=== PATIENT | female | born 1990 ===

== ENCOUNTER 2018-02-10 12:16 | Emergency (ER) | payer MEDICAID ==
[2018-02-10 12:47] VITALS: O2SAT 99
--- NOTE | 2018-02-10 13:15 | C.PDOC ---
History Of Present Illness 27 y/o F c PMHx DM p/w abdominal pain in x 14 weeks. Patient estimates she is 14 weeks by dates. She reports lower abdominal cramping, intermittently for the last 14 weeks. Pain is nonradiating, moderate to severe in intensity, gradually worsening. She reports nausea and vomiting as well. Denies fever, chills, chest pain, dyspnea, dysuria, diarrhea. She has yet to see OBGYN. Time Seen by Provider: 02/10/18 13:10 Chief Complaint (Nursing): Abdominal Pain History Per: Patient History/Exam Limitations: no limitations Onset/Duration Of Symptoms: Intermittent Episodes Current Symptoms Are (Timing): Still Present Quality Of Discomfort: Cramping Past Medical History Reviewed: Historical Data, Nursing Documentation, Vital Signs Vital Signs: Last Vital Signs Temp 98.5 F 02/10/18 12:39 Pulse 93 H 02/10/18 12:39 Resp 20 02/10/18 12:39 BP 115/81 02/10/18 12:39 Pulse Ox 99 02/10/18 15:09 - Medical History PMH: Fibromyalgia Surgical History: Tonsillectomy Family History: States: No Known Family Hx - Social History Hx Alcohol Use: No Hx Substance Use: Yes - Immunization History Hx Tetanus Toxoid Vaccination: No Hx Influenza Vaccination: No Hx Pneumococcal Vaccination: No Review Of Systems Except As Marked, All Systems Reviewed And Found Negative. Constitutional: Negative for: Fever, Chills Cardiovascular: Negative for: Chest Pain Respiratory: Negative for: Shortness of Breath Gastrointestinal: Positive for: Nausea, Vomiting, Abdominal Pain. Negative for : Diarrhea Genitourinary: Negative for: Dysuria Physical Exam - Physical Exam Additional Physical Exam Comments: Constitutional: No acute distress. Head: Normocephalic. Atraumatic. Eyes: PERRL. ENT: Moist mucous membranes. Neck: Supple. Cardiovascular: Regular rate. Radial pulse 2+ bilaterally. Chest: No tenderness. Respiratory: Clear to auscultation bilaterally. GI: Soft. Nontender. Nondistended. Back: No CVA tenderness. Musculoskeletal: No tenderness or swelling of extremities. Skin: No rash. Neurologic: Alert, no focal deficit. ED Course And Treatment - Laboratory Results Result Diagrams: 02/10/18 14:06 02/10/18 14:06 O2 Sat by Pulse Oximetry: 99 - CT Scan/US OB US Other Rad Studies (CT/US): Read By Radiologist, Radiology Report Reviewed CT/US Interpretation: Accession No. : [id number]. Patient Name / ID : LAURY NAVA / [id number]. Exam Date : 02/10/2018 14:15:15 ( Approved ). Study Comment : Sex / Age : F / 27Y. Creator : Kei Peters MD. Dictator : Kei Peters MD. Psych Specialist : Pharmacy Intake Technician : Kei Peters MD. Approver2 : Report Date : 02/10/2018 14:49:17. My Comment : . Date of service: 02/10/2018. PROCEDURE: OB Pelvic Ultrasound. HISTORY: pain in , assess cervix. LMP: 10/30/2017. COMPARISON: None available. FINDINGS: UTERUS: pole: [place]-rump length measures 5.6 cm compatible with estimated gestational age of 12 weeks, 2 days. Heart rate : 150 bpm. age (Ultrasound estimated): 12 weeks, 2 days. Indira- gestational hemorrhage: None. Date of delivery (Ultrasound estimated) : 2018. Uterus measures 13.0 x 7.7 x 9.1 cm. Anteverted. Normal in size and appearance. CERVIX: Measures 3.4 cm. Long and closed. No cervical abnormality seen. RIGHT OVARY: Measures 3.9 x 3.3 x 4.2 cm. No mass lesion. Normal flow. LEFT OVARY: Measures 3.9 x 1.5 x 3.1 cm. No solid mass. Normal flow. FREE FLUID: None. OTHER FINDINGS: None. IMPRESSION: Single live intrauterine gestation with average ultrasound age of 12 weeks, 2 days. heart rate 150 beats per minute. Cervix long and closed. Disposition - Disposition Referrals: Debby Lawrence MD [Staff Provider] - [facility] at [facility] [Outside] [facility] [employer] [facility] [Outside] Disposition: HOME/ ROUTINE Disposition Time: 15:15 Condition: STABLE Additional Instructions: FINDINGS: UTERUS: pole: [place]-rump length measures 5.6 cm compatible with estimated gestational age of 12 weeks, 2 days. Heart rate: 150 bpm. age (Ultrasound estimated): 12 weeks, 2 days Indira-gestational hemorrhage: None. Date of delivery (Ultrasound estimated) : 08/23/2018 Uterus measures 13.0 x 7.7 x 9.1 cm. Anteverted. Normal in size and appearance. CERVIX: Measures 3.4 cm. Long and closed. No cervical abnormality seen. RIGHT OVARY: Measures 3.9 x 3.3 x 4.2 cm. No mass lesion. Normal flow. LEFT OVARY: Measures 3.9 x 1.5 x 3.1 cm. No solid mass. Normal flow. FREE FLUID: None. OTHER FINDINGS: None. IMPRESSION: Single live intrauterine gestation with average ultrasound age of 12 weeks, 2 days. heart rate 150 beats per minute. Cervix long and closed. Instructions: Preparing for When You Have Diabetes Forms: [employer] ([place]) - Clinical Impression Clinical Impression:
[2018-02-10 13:37] LABS: HCG,QUALITATIVE URINE POSITIVE (NEGATIVE)
[2018-02-10 13:41] LABS: SQUAMOUS EPITHIAL 8 /hpf (0-5); URINE BILIRUBIN NEGATIVE (NEGATIVE); URINE BLOOD NEGATIVE (NEGATIVE); URINE CLARITY Hazy (Clear); URINE COLOR Amber (YELLOW); URINE GLUCOSE (UA) NORMAL (Normal); URINE LEUKOCYTE ESTERASE NEG Leu/uL (Negative); URINE PROTEIN NEGATIVE (NEGATIVE); URINE UROBILINOGEN NORMAL mg/dL (0.2-1.0)
[2018-02-10 14:11] LABS: BASO # 0.1 K/uL (0.0-0.2); BASO % 0.8 % (0.0-2.0); EOS # 0.1 K/uL (0.0-0.7); EOS % 0.8 % (0.0-4.0); HEMOGLOBIN 13.4 g/dL (11.0-16.0); LYMPH # 2.2 K/uL (1.0-4.3); LYMPH % 27.9 % (20.0-40.0); MEAN CELL VOLUME 88.3 fL (81.0-99.0); MEAN CORPUSCULAR HEMOGLOBIN 30.1 pg (27.0-31.0); MEAN CORPUSCULAR HGB CONC 34.1 g/dL (33.0-37.0); MEAN PLATELET VOLUME 8.8 fL (7.2-11.7); MONO # 0.7 K/uL (0.0-0.8); MONO % 8.5 % (0.0-10.0); NRBC % 0.1 % (0.0-2.0); RBC 4.44 Mil/uL (3.80-5.20); RED CELL DISTRIBUTION WIDTH 14.3 % (11.5-14.5)
[2018-02-10 14:24] LABS: ALB/GLOB RATIO 1.4 (1.0-2.1); ALBUMIN 4.2 g/dL (3.5-5.0); ALT/SGPT 21 U/L (9-52); AST/SGOT 13 U/L (14-36); BLOOD UREA NITROGEN 7 mg/dL (7-17); GFR NON-AFRICAN AMERICAN > 60; LIPASE 56 U/L (23-300)
--- NOTE | 2018-02-10 14:50 | US ---
Date of service: 02/10/2018 PROCEDURE: OB Pelvic Ultrasound HISTORY: pain in , assess cervix LMP: 10/30/2017 COMPARISON: None available. FINDINGS: UTERUS: pole: [place]-rump length measures 5.6 cm compatible with estimated gestational age of 12 weeks, 2 days. Heart rate: 150 bpm. age (Ultrasound estimated): 12 weeks, 2 days Indira-gestational hemorrhage: None. Date of delivery (Ultrasound estimated) : 08/23/2018 Uterus measures 13.0 x 7.7 x 9.1 cm. Anteverted. Normal in size and appearance. CERVIX: Measures 3.4 cm. Long and closed. No cervical abnormality seen. RIGHT OVARY: Measures 3.9 x 3.3 x 4.2 cm. No mass lesion. Normal flow. LEFT OVARY: Measures 3.9 x 1.5 x 3.1 cm. No solid mass. Normal flow. FREE FLUID: None. OTHER FINDINGS: None. IMPRESSION: Single live intrauterine gestation with average ultrasound age of 12 weeks, 2 days. heart rate 150 beats per minute. Cervix long and closed.
[2018-02-10 15:33] VITALS: BP 118/76; PULSE 80; RESP 18; TEMP 98.7
== END 2018-02-10 15:31 | disposition home or self-care (01) ==
LOC: C.ER 12:16
DX: O26.891 Other specified pregnancy related conditions, first trimester (principal); Z3A.12 12 weeks gestation of pregnancy